=== PATIENT | female | born 1985 | race Hispanic/Latino ===

== ENCOUNTER 2017-08-02 15:01 | Emergency (ER) | payer SELFPAY ==
[~2017-08-02] VITALS: Ht 160 cm; Wt 69.7 kg
[~2017-08-02 15:01] MED LIST: Motrin PO; NATALCARE RX1 TABLET PO
[2017-08-02] MEDS ORDERED: PRENATAL TABLE1 EAC3 PO (15:41)
[2017-08-02 16:14] VITALS: BP 111/80
== END 2017-08-02 16:28 | disposition home or self-care (01) ==
LOC: EME 15:01
DX: O09.32 Supervision of pregnancy with insufficient antenatal care, second trimester (principal); Z3A.24 24 weeks gestation of pregnancy
CPT/HCPCS: 99281; 99283

== ENCOUNTER → 2017-08-19 | Outpatient (CLI) | payer SELFPAY ==
[~2017-08-19] MED LIST changes: +PRENATAL TABLE1 EAC3 PO
== END | disposition home or self-care (01) ==
LOC: RAD 09:45
DX: Z34.90 Encounter for supervision of normal pregnancy, unspecified, unspecified trimester (principal); Z3A.35 35 weeks gestation of pregnancy
CPT/HCPCS: 76805

== ENCOUNTER 2017-09-03 06:39 | Inpatient (IN) | payer OTHER ==
[2017-09-03] VITALS (11 sets, daily range): BP systolic 111–132; BP diastolic 68–81
[~2017-09-03] VITALS: Ht 162.6 cm; Wt 69.0 kg
[2017-09-03 08:13] LABS: BASOPHIL (%) 0.4 % (0-1); BASOPHIL COUNT 0.1 K/uL (0-0.1); EOSINOPHIL (%) 10.3 % (0-5); EOSINOPHIL COUNT 1.3 K/uL (0-0.3); HEMATOCRIT 42.6 % (36.0-46.0); HEMOGLOBIN 14.7 G/DL (11.9-15.5); IMMATURE GRANULOCYTE (%) 0.8 % (0.0-0.7); LYMPHOCYTE (%) 10.1 % (15-42); LYMPHOCYTE COUNT 1.3 K/uL (1.0-2.8); MCH 30.1 PG (29.0-34.0); MCHC 34.5 G/DL (30.0-36.0); MCV 87.3 FL (83-99); MONOCYTE (%) 4.7 % (3-12); MONOCYTE COUNT 0.6 K/uL (0-0.8); NEUTROPHIL (%) 73.7 % (45-76); NEUTROPHIL COUNT 9.6 K/uL (1.8-6.4); RBC DIS.WIDTH-CV 14.7 % (11.8-14.6); RBC DIS.WIDTH-SD 46.7 % (39-53); RED BLOOD COUNT 4.88 M/uL (3.80-5.20)
[2017-09-03 08:35] LABS: ALBUMIN 3.9 G/DL (3.2-4.8); ALKALINE PHOSPHATASE 200 IU/L (3-129); ALT (GPT) 20 IU/L (3-49); AST (GOT) 24 IU/L (2-34); CHLORIDE 107 MEQ/L (99-109); CREATININE 0.7 MG/DL (0.6-1.3); GFR ESTIMATE (CALCULATED) > 59 mL/min/; GLUCOSE 92 mg/dL (70-99); POTASSIUM 3.9 MEQ/L (3.7-5.4); SODIUM 136 MEQ/L (136-147); TOTAL BILIRUBIN 0.4 MG/DL (0.0-1.0); TOTAL PROTEIN 6.9 G/DL (6.4-8.3); UREA NITROGEN (BUN) 18 mg/dL (9-23)
[2017-09-03 08:36] LABS: ANTI-HIV (AIDS STAT TEST) NONREACTIVE
[2017-09-03 08:41] LABS: PLAT.SUFFICIENCY DECREASED; PLATELET COUNT 141 K/uL (156-360)
[2017-09-03 13:41] LABS: AMPHETAMINE NEGATIVE (500 ng/mL); BARBITURATES NEGATIVE (200 ng/mL); BENZODIAZEPINES NEGATIVE (150 ng/mL); BUPRENORPHINE NEGATIVE (10 ng/mL); COCAINE NEGATIVE (150 ng/mL); METHADONE NEGATIVE (200 ng/mL); METHAMPHETAMINE NEGATIVE (500 ng/mL); OPIATES (MORPHINE) NEGATIVE (100 ng/mL); OXYCODONE NEGATIVE (100 ng/mL); PHENCYCLIDINE NEGATIVE (25 ng/mL); PROPOXYPHENE NEGATIVE (300 ng/mL); THC CANNABINOIDS NEGATIVE (50 ng/mL); TRICYCLIC ANTIDEPRESSANTS NEGATIVE (300 ng/mL)
[2017-09-03 13:51] LABS: APPEARANCE CLOUDY ((CLEAR)); BILIRUBIN NEGATIVE; BLOOD LARGE; GLUCOSE (STRIP) 150; KETONES NEGATIVE; LEUKOCYTES TRACE; NITRITE NEGATIVE; PROTEIN (STRIP) 30; SPECIFIC GRAVITY 1.012 (1.000-1.030); UROBILINOGEN 0.2 MG/DL (0.2-1.0)
[2017-09-03 13:52] LABS: COLOR RED ((YELLOW))
[2017-09-03 13:54] LABS: RED BLOOD CELLS TNTC /HPF (0-5); UCUL ADDED? YES
[2017-09-04 07:07] LABS: BASOPHIL (%) 0.4 % (0-1); BASOPHIL COUNT 0.1 K/uL (0-0.1); EOSINOPHIL (%) 10.1 % (0-5); EOSINOPHIL COUNT 1.4 K/uL (0-0.3); HEMATOCRIT 37.7 % (36.0-46.0); IMMATURE GRANULOCYTE (%) 0.6 % (0.0-0.7); LYMPHOCYTE (%) 15.8 % (15-42); LYMPHOCYTE COUNT 2.3 K/uL (1.0-2.8); MCH 29.6 PG (29.0-34.0); MCHC 32.6 G/DL (30.0-36.0); MCV 90.6 FL (83-99); MONOCYTE (%) 6.9 % (3-12); NEUTROPHIL (%) 66.2 % (45-76); NEUTROPHIL COUNT 9.4 K/uL (1.8-6.4); PLATELET COUNT 116 K/uL (156-360); RBC DIS.WIDTH-CV 14.9 % (11.8-14.6); RBC DIS.WIDTH-SD 49.2 % (39-53); RED BLOOD COUNT 4.16 M/uL (3.80-5.20); WHITE BLOOD COUNT 14.3 K/uL (4.1-10.2)
[2017-09-04 07:08] LABS: HEMOGLOBIN 12.3 G/DL (11.9-15.5)
[2017-09-04 07:11] VITALS: BP 102/55
[2017-09-04 09:01] LABS: TREPONEMA ANTIBODY NEGATIVE (NEGATIVE)
[2017-09-04 12:00] LABS: HEPATITIS B SURFACE ANTIGEN Nonreactive
[2017-09-04 12:01] LABS: HIV-1/2 AB/AG COMBO Nonreactive
[2017-09-04 15:12] VITALS: BP 103/61
[2017-09-04 23:30] VITALS: BP 108/64
[2017-09-05 07:29] VITALS: BP 123/72
[2017-09-05] MEDS ORDERED: IBUPROFEN800 MG PO (09:51)
== END 2017-09-05 14:22 | disposition home or self-care (01) | DRG 775 ==
LOC: LDRP-OP 06:39 → 2WEST 06:40
PROVIDERS: Advanced Practice Midwife
DX: O99.12 Other diseases of the blood and blood-forming organs and certain disorders involving the immune mechanism complicating childbirth (principal); D69.59 Other secondary thrombocytopenia; O99.214 Obesity complicating childbirth; E66.3 Overweight; Z87.891 Personal history of nicotine dependence; Z68.22 Body mass index [BMI] 22.0-22.9, adult; Z3A.38 38 weeks gestation of pregnancy; Z37.0 Single live birth
CPT/HCPCS: 80053; 81003; 85025; 86762; 86780; 87086; 87340; 87389; J1050